=== PATIENT | female | born 1940 | race African-American/Black ===

== ENCOUNTER 2017-04-07 15:41 | Emergency (ER) | payer MEDICARE, MEDICAID ==
[2017-04-07 16:31] LABS: #Lymphocytes 0.4 thou/uL (1.20-3.40); #Monocytes 0.6 thou/uL (0.11-0.59); #Neutrophils 9.1 thou/uL (1.40-6.50); %Basophils 0.2 % (0.0-1.0); %Eosinophils 0.1 % (0.0-10.0); %Lymphocytes 4.1 % (21.0-51.0); %Monocytes 6.1 % (0.0-10.0); %Neutrophils 89.4 % (42.0-75.0); Hemoglobin 11.6 g/dL (12.0-16.0); Mean Corpuscular HGB CONC 32.2 g/dL (32.0-36.0); Mean Corpuscular Hemoglobin 28.7 pg (27.0-31.0); Mean Corpuscular Volume 89.2 fl (81.0-99.0); Platelet Count 206 thou/uL (130-400); RBC Distribution Width 11.5 % (11.5-14.5); Red Blood Cell (RBC) Count 4.06 mill/uL (4.20-5.40); White Blood Cell (WBC) Count 10.2 thou/uL (4.8-10.8)
--- NOTE | 2017-04-07 17:12 | RAD ---
CHEST ONE VIEW 04/07/17 HISTORY: Fever. FINDINGS: No comparison. The cardiac silhouette and pulmonary vasculature are unremarkable. Mild bilateral perihilar infiltrat es are present. There is no confluent air space consolidation, pneumothorax or pleural fluid apparent . IMPRESSION: Mild bilateral perihilar infiltrates without lobar consolidation. Pneumonitis is not favored. Finding s may be related to pulmonary vasculature. POS: [facility]
[2017-04-07 17:34] LABS: ALT (SGPT) 11 U/L (8-55); AST (SGOT) 17 U/L (5-34); Albumin 4.1 g/dL (3.4-4.8); Alkaline Phosphatase 76 U/L (40-150); Anion Gap 16 mmol/L (10-20); BUN (Urea Nitrogen) 21 mg/dL (9.8-20.1); Bilirubin, Total 0.3 mg/dL (0.2-1.2); Calc. Creatinine Clearance 0 mL/min (70-130); Calcium 9.8 mg/dL (7.8-10.44); Carbon Dioxide 24 mmol/L (23-31); Chloride 100 mmol/L (98-107); Estimated GFR-MDRD 53; Globulin 3.5 g/dL (2.4-3.5); Glucose 126 mg/dL (83-110); Potassium 3.9 mmol/L (3.5-5.1); Protein, Total 7.6 g/dL (6.0-8.3); Sodium 136 mmol/L (136-145)
== END 2017-04-07 18:34 | disposition home or self-care (01) ==
LOC: ERS 15:41
DX: J11.1 Influenza due to unidentified influenza virus with other respiratory manifestations (principal); E78.5 Hyperlipidemia, unspecified; I10 Essential (primary) hypertension; Z86.73 Personal history of transient ischemic attack (TIA), and cerebral infarction without residual deficits; Z79.899 Other long term (current) drug therapy; Z79.82 Long term (current) use of aspirin
CPT/HCPCS: 36415; 71045; 80053; 83605; 85025; 87040; 87804